=== PATIENT | female | born 2000 | race Two or more races ===

== ENCOUNTER 2024-03-28 17:07 | Inpatient (IN) | payer OTHER ==
[~2024-03-28] VITALS: Ht 157.5 cm; Wt 87.8 kg
[2024-03-28] MEDS ORDERED: HOME MED LIST COMPLETE! XX SCH (17:35)
[2024-03-28] MEDS: miSOPROStol 50MCG 1/2 TABLET SL SCH (18:21)
[2024-03-28 18:29] LABS: HEMATOCRIT 28.2 % (36.0-47.0); HEMOGLOBIN 8.5 g/dl (12.0-15.5); MEAN CORPUSCULAR HEMOGLOBIN 19.3 pg (27.0-33.0); MEAN CORPUSCULAR HGB CONC 30.1 g/dl (32.0-36.5); MEAN CORPUSCULAR VOLUME 63.9 fl (80.0-96.0); PLATELET COUNT, AUTOMATED 265 10^3/uL (150-450); RED BLOOD COUNT 4.41 10^6/uL (4.00-5.40)
[2024-03-28 19:16] VITALS: BP 115/64
[2024-03-28 19:31] LABS: HIV 1&2 SCREEN NEGATIVE (NEGATIVE)
[2024-03-28 19:40] LABS: HEPATITIS C VIRUS ABY INDEX 0.04 INDEX (<0.8)
[2024-03-28 21:11] VITALS: BP 116/58
[2024-03-28 22:14] VITALS: BP 116/66
[2024-03-28 23:16] VITALS: BP 113/55
[2024-03-29] MEDS: OXYTOCIN DRIP 30 UNITS in IV 1 EA IV PRN (01:33)
[2024-03-29] MEDS: LIDOCAINE 1% MDV 20ML VIAL INFIL PRN (01:33)
[2024-03-29] MEDS ORDERED: IBUPROFEN 600MG TAB PO PRN (01:55)
[2024-03-29] MEDS ORDERED: ONDANSETRON 4MG 2ML VIAL IV PRN (01:55)
[2024-03-29] MEDS ORDERED: DIBUCAINE 1% OINTMENT 30GM TOP PRN (01:55)
[2024-03-29] MEDS ORDERED: ACETAMINOPHEN 325 MG TAB PO PRN (01:55)
[2024-03-29] MEDS ORDERED: RHO(D) IMMUNE GLOBULIN/MALTOSE 500MCG(2500IU)/2.2ML VIAL (WINRHO) IM SCH (01:55)
[2024-03-29] MEDS ORDERED: RHOGAM 300MCG (1500IU) INJ IM SCH (01:55)
[2024-03-29] MEDS ORDERED: DOCUSATE SODIUM 100MG CAPSULE PO PRN (01:55)
[2024-03-29] MEDS ORDERED: METHYLERGONOVINE MALEATE 0.2 MG TAB PO PRN (01:55)
[2024-03-29] MEDS ORDERED: ACETAMINOPHEN 500 MG TAB PO PRN (01:55)
[2024-03-29] MEDS ORDERED: IBUPROFEN 800 MG TAB PO PRN (01:55)
[2024-03-29 03:46] VITALS: BP 110/62; O2SAT 98
[2024-03-29 05:37] VITALS: BP 106/57; O2SAT 99
[2024-03-29] MEDS: PRENATAL VITAMINS CHEWABLE TABLET PO SCH (09:00)
[2024-03-29 10:32] VITALS: BP 106/57; TEMP 97.6; O2SAT 99
[2024-03-29] MEDS ORDERED: BOOSTRIX VACCINE (TETANUS/DIPHTH/ACEL. PERTUSSIS) 0.5ML SYR IM.IMMUN ONE (15:00)
[2024-03-29] MEDS ORDERED: FLUZONE VACCINE TRIVALENT PF(2024-25) 0.5ML SYRINGE IM.IMMUN ONE (15:00)
[2024-03-29 18:20] VITALS: BP 121/67; O2SAT 98
[2024-03-30 06:05] VITALS: BP 108/58; O2SAT 98
[2024-03-30] MEDS ORDERED: MEASLES,MUMPS,RUBELLA VACCINE INJ (MMR-II) SC.IMMUN ONE (09:00)
[2024-03-30 09:20] VITALS: BP 108/58; TEMP 97.5; O2SAT 98
[2024-03-30] MEDS ORDERED: IBUP-1022 PO (10:16)
[2024-03-30] MEDS ORDERED: ACET-683 PO (10:16)
[2024-03-30] MEDS ORDERED: COLA100C5 PO (10:16)
[2024-03-30] MEDS: FLUZONE VACCINE TRIVALENT PF(2024-25) 0.5ML SYRINGE IM.IMMUN ONE (11:18)
[2024-03-30] MEDS: BOOSTRIX VACCINE (TETANUS/DIPHTH/ACEL. PERTUSSIS) 0.5ML SYR IM.IMMUN ONE (11:18)
[2024-04-01 12:06] LABS: GC DNA AMPLIFICATION NEGATIVE (NEGATIVE)
== END 2024-03-30 11:20 | disposition home or self-care (01) | DRG 807 ==
LOC: M LDI 17:07 → M OBS 03-29 03:35
PROVIDERS: ADMIT Specialist; ATTEND Specialist
PROC: 3E0P7GC Introduction of Other Therapeutic Substance into Female Reproductive, Via Natural or Artificial Opening (ICD-10-PCS; 2024-03-28)
PROC: 10E0XZZ Delivery of Products of Conception, External Approach (ICD-10-PCS; principal; 2024-03-29)
PROC: 0HQ9XZZ Repair Perineum Skin, External Approach (ICD-10-PCS; 2024-03-29)
DX: O36.5933 Maternal care for other known or suspected poor fetal growth, third trimester, fetus 3 (principal); Z37.0 Single live birth; O70.0 First degree perineal laceration during delivery; O62.3 Precipitate labor; Z3A.38 38 weeks gestation of pregnancy